=== PATIENT | female | born 1940 | race Caucasian/White ===

== ENCOUNTER 2022-02-08 11:13 | Emergency (ER) | payer MEDICARE ==
[2022-02-08] MEDS ORDERED: Albuterol 0.083% 2.5 MG/3 ML Neb Soln NEB ONE (11:32)
[2022-02-08] MEDS ORDERED: methylPREDNISolone Sodium Succinate 125 MG/2 ML SDV IVPUSH ONE (11:32)
[2022-02-08] MEDS ORDERED: Sodium Chloride 0.9% 10 ML Syringe FLUSH PRN (11:32)
[2022-02-08 12:11] LABS: BASE EXCESS VENOUS,POC 7 mmol/L (-2 - 3+); PCO2 VENOUS,POC 72 mmHg (41-51); PH VENOUS,POC 7.32 pH Units (7.32-7.43)
[2022-02-08 12:26] LABS: ESTIMATED GFR 74 mL/min (>60)
[2022-02-08] MEDS ORDERED: cefTRIAXone 2 GM Vial IVPUSH ONE (12:33)
[2022-02-08] MEDS ORDERED: Iopamidol 755 Mg/ML 100 ML Bottle IV ONE (13:57)
[2022-02-08 14:27] LABS: BASE EXCESS VENOUS,POC 7 mmol/L (-2 - 3+); PCO2 VENOUS,POC 68 mmHg (41-51); PH VENOUS,POC 7.34 pH Units (7.32-7.43)
[2022-02-08] MEDS ORDERED: Sodium Chloride 0.9% 500 ML IV ONE (15:27)
[2022-02-08] MEDS ORDERED: Sodium Chloride 0.9% 1,000 ML IV SCH (17:15)
== END 2022-02-08 18:45 ==
LOC: FB.ED 11:13
DX: J18.9 Pneumonia, unspecified organism (principal); J96.21 Acute and chronic respiratory failure with hypoxia; J96.22 Acute and chronic respiratory failure with hypercapnia; K76.89 Other specified diseases of liver; I11.0 Hypertensive heart disease with heart failure; I50.9 Heart failure, unspecified; J44.9 Chronic obstructive pulmonary disease, unspecified; Z87.891 Personal history of nicotine dependence
CPT/HCPCS: 36415; 71045; 71275; 80053; 83605; 83735; 83880; 84484; 85025; 85379; 85610; 85730; 86140; 87040; 87077; 87186; 93005; 94640; 94660; 96374; 96375; 99285; J0696; J2930; J3490; J7030; J7040; Q9967

== ENCOUNTER 2022-03-25 02:50 | Inpatient (IN) | payer MEDICARE, BC ==
[2022-03-25] MEDS ORDERED: Albuterol/Ipratropium 3.0-0.5 MG/3 ML Neb Soln NEB ONE (03:15)
[2022-03-25] MEDS ORDERED: methylPREDNISolone Sodium Succinate 500 MG/4 ML SDV IVPUSH ONE (03:16)
[2022-03-25] MEDS ORDERED: Furosemide 40 MG/4 ML VIAL IVPUSH ONE (03:19)
[2022-03-25 03:38] LABS: ESTIMATED GFR 57 mL/min (>60)
[2022-03-25] MEDS ORDERED: methylPREDNISolone Sodium Succinate 125 MG/2 ML SDV ONE (03:43)
[2022-03-25] MEDS ORDERED: methylPREDNISolone Sodium Succinate 125 MG/2 ML SDV IVPUSH ONE (03:44)
[2022-03-25] MEDS: Sodium Chloride 0.9% 10 ML Syringe FLUSH PRN ×3 (03:45→21:24)
[2022-03-25 03:49] LABS: BASE EXCESS VENOUS,POC 4 mmol/L (-2 - 3+); PCO2 VENOUS,POC 52 mmHg (41-51); PH VENOUS,POC 7.38 pH Units (7.32-7.43)
[2022-03-25 04:36] LABS: CORONAVIRUS COVID-19 NAA NEGATIVE (NEGATIVE)
[2022-03-25] MEDS ORDERED: Acetylcysteine 20% 200 MG/ML 30 ML Nebulizer Soln SDV NEB ONE (04:48)
[2022-03-25] MEDS ORDERED: Glucagon,Human Recombinant 1 MG Vial IM PRN (06:13)
[2022-03-25] MEDS ORDERED: Acetaminophen 325 MG Tab PO PRN (06:13)
[2022-03-25] MEDS ORDERED: 50% Dextrose in Water 50 ML Syringe IVPUSH PRN (06:13)
[2022-03-25] MEDS: Acetylcysteine 20% 200 MG/ML 30 ML Nebulizer Soln SDV NEB SCH ×4 (07:04→23:33)
[2022-03-25] MEDS: Albuterol/Ipratropium 3.0-0.5 MG/3 ML Neb Soln NEB SCH ×4 (07:23→23:22)
[2022-03-25] MEDS ORDERED: Non-Formulary Medication 1 Each (Insulin Aspart [Novolog] 100 UNIT/ML Pen) SQ SCH (08:00)
[2022-03-25] MEDS ORDERED: Non-Formulary Medication 1 Each (Cholecalciferol (Vitamin D3) [Vitamin D] 5,000 UNIT Table PO SCH (09:00)
[2022-03-25] MEDS ORDERED: Polyethylene Glycol 3350 Powder 17 GM Packet PO SCH (09:00)
[2022-03-25] MEDS ORDERED: Gabapentin 100 MG Cap PO SCH (09:00)
[2022-03-25] MEDS ORDERED: Oxybutynin 5 MG Tab PO SCH (09:00)
[2022-03-25] MEDS ORDERED: Non-Formulary Medication 1 Each (Magnesium Oxide [Magnesium] 400 MG Tablet) PO SCH (09:00)
[2022-03-25] MEDS ORDERED: Doxycycline 100 MG Tab PO SCH (09:00)
[2022-03-25] MEDS ORDERED: Pantoprazole 40 MG Tab.CR PO SCH (09:00)
[2022-03-25] MEDS ORDERED: Losartan 50 MG Tab PO SCH (09:00)
[2022-03-25] MEDS ORDERED: Insulin Glargine,Human Rec. Analog 100 Units/ML 3 ML Pen SUBCUT ONE (10:22)
[2022-03-25] MEDS: Insulin Glargine,Human Rec. Analog 100 Units/ML 3 ML Pen SUBCUT SCH ×2 (10:24→20:39)
[2022-03-25] MEDS: Pantoprazole 40 MG Vial IVPUSH SCH (10:26)
[2022-03-25] MEDS: Doxycycline 100 MG in Sodium Chloride 0.9% 100 ML IV SCH ×2 (10:27→21:21)
[2022-03-25] MEDS ORDERED: Insulin Lispro 100 Unit/ML 3 ML KwikPen SUBCUT ONE (10:39)
[2022-03-25] MEDS ORDERED: Morphine 2 MG/ML SYRINGE IVPUSH PRN (10:40)
[2022-03-25] MEDS: Insulin Lispro 100 Unit/ML 3 ML KwikPen SUBCUT SCH ×4 (10:40→21:22)
[2022-03-25] MEDS: Enoxaparin 40 MG/0.4 ML Syringe SUBCUT SCH (10:43)
[2022-03-25] MEDS ORDERED: Acetaminophen 650 MG Supp RECTAL PRN (11:27)
[2022-03-25] MEDS ORDERED: Furosemide 40 MG/4 ML VIAL IVPUSH SCH (11:30)
[2022-03-25] MEDS ORDERED: methylPREDNISolone Sodium Succinate 125 MG/2 ML SDV IVPUSH SCH (12:00)
[2022-03-25] MEDS ORDERED: Ondansetron 4 MG Tab.DIS PO PRN (14:12)
[2022-03-25] MEDS ORDERED: oxyCODONE 5 MG Tab PO PRN (14:12)
[2022-03-25] MEDS: Carvedilol 3.125 MG Tab PO SCH (20:38)
[2022-03-25] MEDS ORDERED: atorvaSTATin 20 MG Tab PO SCH (21:00)
[2022-03-26] MEDS: Albuterol/Ipratropium 3.0-0.5 MG/3 ML Neb Soln NEB SCH ×3 (05:38→18:04)
[2022-03-26] MEDS: Acetylcysteine 20% 200 MG/ML 30 ML Nebulizer Soln SDV NEB SCH ×3 (06:09→18:29)
[2022-03-26 06:31] LABS: ESTIMATED GFR 57 mL/min (>60)
[2022-03-26] MEDS: Insulin Lispro 100 Unit/ML 3 ML KwikPen SUBCUT SCH ×4 (08:49→21:31)
[2022-03-26] MEDS: Insulin Glargine,Human Rec. Analog 100 Units/ML 3 ML Pen SUBCUT SCH ×2 (08:51→21:29)
[2022-03-26] MEDS: Carvedilol 3.125 MG Tab PO SCH ×2 (08:55→21:20)
[2022-03-26] MEDS: Furosemide 40 MG/4 ML VIAL IVPUSH SCH (08:56)
[2022-03-26] MEDS: Enoxaparin 40 MG/0.4 ML Syringe SUBCUT SCH (08:56)
[2022-03-26] MEDS: methylPREDNISolone Sodium Succinate 125 MG/2 ML SDV IVPUSH SCH ×2 (08:57→21:37)
[2022-03-26] MEDS: Pantoprazole 40 MG Vial IVPUSH SCH (08:59)
[2022-03-26] MEDS ORDERED: Furosemide 40 MG Tab PO SCH (09:00)
[2022-03-26] MEDS ORDERED: Insulin Lispro 100 Unit/ML 3 ML KwikPen SUBCUT SCH (09:00)
[2022-03-26] MEDS: Doxycycline 100 MG in Sodium Chloride 0.9% 100 ML IV SCH (09:48)
[2022-03-26] MEDS: Doxycycline 100 MG Tab PO SCH ×2 (10:56→21:38)
[2022-03-26] MEDS: Nystatin Topical Powder 15 GM Bottle TOP SCH ×2 (13:49→21:35)
[2022-03-26] MEDS: Sodium Chloride 0.9% 10 ML Syringe FLUSH PRN (21:23)
[2022-03-27] MEDS: Albuterol/Ipratropium 3.0-0.5 MG/3 ML Neb Soln NEB SCH ×4 (00:24→17:48)
[2022-03-27] MEDS: Acetylcysteine 20% 200 MG/ML 30 ML Nebulizer Soln SDV NEB SCH ×4 (00:39→18:45)
[2022-03-27] MEDS: Insulin Lispro 100 Unit/ML 3 ML KwikPen SUBCUT SCH ×4 (08:37→21:14)
[2022-03-27 08:42] LABS: ESTIMATED GFR 74 mL/min (>60)
[2022-03-27] MEDS: Carvedilol 3.125 MG Tab PO SCH ×2 (08:56→21:16)
[2022-03-27] MEDS: Furosemide 40 MG/4 ML VIAL IVPUSH SCH (08:56)
[2022-03-27] MEDS: Enoxaparin 40 MG/0.4 ML Syringe SUBCUT SCH (08:57)
[2022-03-27] MEDS: Nystatin Topical Powder 15 GM Bottle TOP SCH ×2 (08:57→21:17)
[2022-03-27] MEDS: cefTRIAXone 1 GM Vial IVPUSH SCH (08:59)
[2022-03-27] MEDS: methylPREDNISolone Sodium Succinate 125 MG/2 ML SDV IVPUSH SCH (09:00)
[2022-03-27] MEDS: Pantoprazole 40 MG Vial IVPUSH SCH (09:01)
[2022-03-27] MEDS: Insulin Glargine,Human Rec. Analog 100 Units/ML 3 ML Pen SUBCUT SCH ×2 (09:40→21:07)
[2022-03-27] MEDS ORDERED: Insulin Glargine,Human Rec. Analog 100 Units/ML 3 ML Pen SUBCUT ONE (21:09)
[2022-03-28] MEDS: Albuterol/Ipratropium 3.0-0.5 MG/3 ML Neb Soln NEB SCH ×4 (00:06→17:22)
[2022-03-28] MEDS: Acetylcysteine 20% 200 MG/ML 30 ML Nebulizer Soln SDV NEB SCH ×4 (00:20→17:41)
[2022-03-28 06:56] LABS: ESTIMATED GFR 74 mL/min (>60)
[2022-03-28] MEDS: Insulin Lispro 100 Unit/ML 3 ML KwikPen SUBCUT SCH ×4 (08:30→21:54)
[2022-03-28] MEDS: Furosemide 40 MG/4 ML VIAL IVPUSH SCH (08:33)
[2022-03-28] MEDS: Enoxaparin 40 MG/0.4 ML Syringe SUBCUT SCH (08:33)
[2022-03-28] MEDS: Carvedilol 3.125 MG Tab PO SCH ×2 (08:33→20:51)
[2022-03-28] MEDS: cefTRIAXone 1 GM Vial IVPUSH SCH (08:34)
[2022-03-28] MEDS: Nystatin Topical Powder 15 GM Bottle TOP SCH ×2 (08:34→20:51)
[2022-03-28] MEDS: methylPREDNISolone Sodium Succinate 125 MG/2 ML SDV IVPUSH SCH (08:35)
[2022-03-28] MEDS: Sodium Chloride 0.9% 10 ML Syringe FLUSH PRN ×6 (08:38→09:53)
[2022-03-28] MEDS: Insulin Glargine,Human Rec. Analog 100 Units/ML 3 ML Pen SUBCUT SCH ×2 (09:41→21:52)
[2022-03-28] MEDS: Pantoprazole 40 MG Vial IVPUSH SCH (09:42)
[2022-03-28] MEDS: guaiFENesin/Dextromethorphan 100-10 MG/5 ML Soln 5 ML Cup PO PRN ×3 (09:45→21:09)
[2022-03-28] MEDS: Doxycycline 100 MG Tab PO SCH ×2 (15:58→21:56)
[2022-03-28] MEDS: Polyethylene Glycol 3350 Powder 17 GM Packet PO SCH (15:58)
[2022-03-28] MEDS ORDERED: Carboxymethylcellulose Sodium 0.5% Ophth Soln 15 ML Bottle EYEBOTH PRN (19:39)
[2022-03-28] MEDS: Acetaminophen 325 MG Tab PO PRN (21:09)
[2022-03-29] MEDS: Albuterol/Ipratropium 3.0-0.5 MG/3 ML Neb Soln NEB SCH ×4 (00:16→17:02)
[2022-03-29] MEDS: Acetylcysteine 20% 200 MG/ML 30 ML Nebulizer Soln SDV NEB SCH ×4 (00:23→17:19)
[2022-03-29 06:32] LABS: ESTIMATED GFR 65 mL/min (>60)
[2022-03-29] MEDS: Insulin Lispro 100 Unit/ML 3 ML KwikPen SUBCUT SCH ×4 (08:30→21:32)
[2022-03-29] MEDS: Carvedilol 3.125 MG Tab PO SCH ×2 (08:33→21:28)
[2022-03-29] MEDS: Insulin Glargine,Human Rec. Analog 100 Units/ML 3 ML Pen SUBCUT SCH ×2 (08:34→21:35)
[2022-03-29] MEDS: Polyethylene Glycol 3350 Powder 17 GM Packet PO SCH (08:40)
[2022-03-29] MEDS: Sodium Chloride 0.9% 10 ML Syringe FLUSH PRN ×2 (08:48→09:06)
[2022-03-29] MEDS: Furosemide 40 MG/4 ML VIAL IVPUSH SCH (08:49)
[2022-03-29] MEDS: cefTRIAXone 1 GM Vial IVPUSH SCH (08:49)
[2022-03-29] MEDS: methylPREDNISolone Sodium Succinate 125 MG/2 ML SDV IVPUSH SCH (08:50)
[2022-03-29] MEDS: Pantoprazole 40 MG Vial IVPUSH SCH (09:01)
[2022-03-29] MEDS: Enoxaparin 40 MG/0.4 ML Syringe SUBCUT SCH (09:16)
[2022-03-29] MEDS: Nystatin Topical Powder 15 GM Bottle TOP SCH ×2 (09:17→21:30)
[2022-03-29] MEDS: guaiFENesin/Dextromethorphan 100-10 MG/5 ML Soln 5 ML Cup PO PRN ×3 (09:18→21:48)
[2022-03-29] MEDS: Doxycycline 100 MG Tab PO SCH ×2 (09:18→21:30)
[2022-03-29] MEDS: Acetaminophen 325 MG Tab PO PRN ×2 (17:00→21:47)
[2022-03-29] MEDS: Melatonin 3 MG Tab PO SCH (21:29)
[2022-03-29] MEDS ORDERED: Insulin Glargine,Human Rec. Analog 100 Units/ML 3 ML Pen SUBCUT ONE (21:34)
[2022-03-30] MEDS: Albuterol/Ipratropium 3.0-0.5 MG/3 ML Neb Soln NEB SCH ×4 (00:45→17:13)
[2022-03-30] MEDS: Acetylcysteine 20% 200 MG/ML 30 ML Nebulizer Soln SDV NEB SCH ×4 (00:56→17:30)
[2022-03-30 06:37] LABS: ESTIMATED GFR 65 mL/min (>60)
[2022-03-30] MEDS: Insulin Lispro 100 Unit/ML 3 ML KwikPen SUBCUT SCH ×4 (07:55→22:01)
[2022-03-30] MEDS: Polyethylene Glycol 3350 Powder 17 GM Packet PO SCH (08:48)
[2022-03-30] MEDS: Doxycycline 100 MG Tab PO SCH ×2 (08:48→21:59)
[2022-03-30] MEDS: Carvedilol 3.125 MG Tab PO SCH ×2 (08:48→21:56)
[2022-03-30] MEDS: Acetaminophen 325 MG Tab PO PRN ×3 (08:49→21:58)
[2022-03-30] MEDS: Sodium Chloride 0.9% 10 ML Syringe FLUSH PRN ×5 (08:53→09:50)
[2022-03-30] MEDS: Furosemide 40 MG/4 ML VIAL IVPUSH SCH (08:54)
[2022-03-30] MEDS: cefTRIAXone 1 GM Vial IVPUSH SCH (08:55)
[2022-03-30] MEDS: Nystatin Topical Powder 15 GM Bottle TOP SCH ×2 (09:38→21:58)
[2022-03-30] MEDS: Enoxaparin 40 MG/0.4 ML Syringe SUBCUT SCH (09:39)
[2022-03-30] MEDS: Pantoprazole 40 MG Vial IVPUSH SCH (09:39)
[2022-03-30] MEDS: Insulin Glargine,Human Rec. Analog 100 Units/ML 3 ML Pen SUBCUT SCH ×2 (09:40→22:01)
[2022-03-30] MEDS: Melatonin 3 MG Tab PO SCH (21:57)
[2022-03-30] MEDS: guaiFENesin/Dextromethorphan 100-10 MG/5 ML Soln 5 ML Cup PO PRN (21:57)
[2022-03-31] MEDS: Albuterol/Ipratropium 3.0-0.5 MG/3 ML Neb Soln NEB SCH ×4 (00:42→17:09)
[2022-03-31] MEDS: Acetylcysteine 20% 200 MG/ML 30 ML Nebulizer Soln SDV NEB SCH ×4 (00:44→17:24)
[2022-03-31] MEDS: Insulin Lispro 100 Unit/ML 3 ML KwikPen SUBCUT SCH ×4 (08:50→21:21)
[2022-03-31] MEDS: Doxycycline 100 MG Tab PO SCH ×2 (08:55→21:19)
[2022-03-31] MEDS: Polyethylene Glycol 3350 Powder 17 GM Packet PO SCH (08:55)
[2022-03-31] MEDS: Carvedilol 3.125 MG Tab PO SCH ×2 (08:55→21:17)
[2022-03-31] MEDS: Nystatin Topical Powder 15 GM Bottle TOP SCH ×2 (08:56→21:18)
[2022-03-31] MEDS: Sodium Chloride 0.9% 10 ML Syringe FLUSH PRN ×3 (08:57→09:10)
[2022-03-31] MEDS: Furosemide 40 MG/4 ML VIAL IVPUSH SCH (08:58)
[2022-03-31] MEDS: cefTRIAXone 1 GM Vial IVPUSH SCH (09:00)
[2022-03-31] MEDS: Enoxaparin 40 MG/0.4 ML Syringe SUBCUT SCH (09:12)
[2022-03-31] MEDS: guaiFENesin/Dextromethorphan 100-10 MG/5 ML Soln 5 ML Cup PO PRN ×3 (09:20→21:56)
[2022-03-31] MEDS: Gabapentin 100 MG Cap PO SCH ×2 (09:20→21:39)
[2022-03-31] MEDS: Acetaminophen 325 MG Tab PO PRN ×2 (09:21→21:49)
[2022-03-31] MEDS: Insulin Glargine,Human Rec. Analog 100 Units/ML 3 ML Pen SUBCUT SCH ×2 (09:24→21:22)
[2022-03-31] MEDS: Amoxicillin/Clavulanate K 875-125 MG Tab PO SCH ×2 (10:55→21:17)
[2022-03-31] MEDS: Melatonin 3 MG Tab PO SCH (21:20)
[2022-03-31] MEDS ORDERED: Insulin Glargine,Human Rec. Analog 100 Units/ML 3 ML Pen SUBCUT ONE (21:26)
[2022-04-01] MEDS: Acetylcysteine 20% 200 MG/ML 30 ML Nebulizer Soln SDV NEB SCH ×2 (00:35→05:41)
[2022-04-01] MEDS: Albuterol/Ipratropium 3.0-0.5 MG/3 ML Neb Soln NEB SCH ×2 (00:35→05:41)
[2022-04-01] MEDS ORDERED: Pantoprazole 40 MG Tab.CR PO SCH (06:00)
[2022-04-01] MEDS: Insulin Lispro 100 Unit/ML 3 ML KwikPen SUBCUT SCH (08:25)
[2022-04-01] MEDS: Polyethylene Glycol 3350 Powder 17 GM Packet PO SCH (08:29)
[2022-04-01] MEDS: Enoxaparin 40 MG/0.4 ML Syringe SUBCUT SCH (08:30)
[2022-04-01] MEDS: Carvedilol 3.125 MG Tab PO SCH (08:31)
[2022-04-01] MEDS: Doxycycline 100 MG Tab PO SCH (08:31)
[2022-04-01] MEDS: Nystatin Topical Powder 15 GM Bottle TOP SCH (08:32)
[2022-04-01] MEDS: Gabapentin 100 MG Cap PO SCH (08:41)
[2022-04-01] MEDS: Insulin Glargine,Human Rec. Analog 100 Units/ML 3 ML Pen SUBCUT SCH (08:42)
[2022-04-01] MEDS: Amoxicillin/Clavulanate K 875-125 MG Tab PO SCH (08:42)
[2022-04-01] MEDS ORDERED: Furosemide 40 MG Tab PO SCH (09:00)
[2022-04-01] MEDS: guaiFENesin/Dextromethorphan 100-10 MG/5 ML Soln 5 ML Cup PO PRN (09:46)
== END 2022-04-01 10:45 | DRG 177 ==
LOC: FB.ED 02:50 → UNDOADMOB 05:27 → FB.MS 05:27 → OBSVTOIN 08:34
PROVIDERS: ADMIT Emergency Medicine; ATTEND Family Medicine
DX: J15.6 Pneumonia due to other Gram-negative bacteria (principal); J96.21 Acute and chronic respiratory failure with hypoxia; J96.22 Acute and chronic respiratory failure with hypercapnia; J44.0 Chronic obstructive pulmonary disease with (acute) lower respiratory infection; J44.1 Chronic obstructive pulmonary disease with (acute) exacerbation; I50.32 Chronic diastolic (congestive) heart failure; Z68.43 Body mass index [BMI] 50.0-59.9, adult; Z51.5 Encounter for palliative care; Z78.9 Other specified health status; K76.0 Fatty (change of) liver, not elsewhere classified; L89.159 Pressure ulcer of sacral region, unspecified stage; E11.9 Type 2 diabetes mellitus without complications; Z66 Do not resuscitate; Z20.822 Contact with and (suspected) exposure to COVID-19; B37.2 Candidiasis of skin and nail; E78.5 Hyperlipidemia, unspecified; K42.9 Umbilical hernia without obstruction or gangrene; M25.511 Pain in right shoulder; I11.0 Hypertensive heart disease with heart failure; K59.00 Constipation, unspecified; R16.0 Hepatomegaly, not elsewhere classified; G47.33 Obstructive sleep apnea (adult) (pediatric); E66.01 Morbid (severe) obesity due to excess calories; K21.9 Gastro-esophageal reflux disease without esophagitis; I27.20 Pulmonary hypertension, unspecified; E11.628 Type 2 diabetes mellitus with other skin complications; E11.319 Type 2 diabetes mellitus with unspecified diabetic retinopathy without macular edema; Z79.4 Long term (current) use of insulin; Z79.899 Other long term (current) drug therapy
CPT/HCPCS: 0241U; 36415; 71045; 71250; 80048; 80053; 82947; 83605; 83880; 84484; 85025; 85379; 85610; 85730; 87070; 87077; 87205; 94640; 94760; 96374; 96375; 99223; 99232; 99233; 99238; 99285-25; A9270-GY; C9113; J0696; J1650; J1815; J1815-GY; J1940; J2930; J3490; J7620; U0002

== ENCOUNTER 2022-12-10 10:54 | Emergency (ER) | payer MEDICARE, BC ==
[2022-12-10] MEDS ORDERED: Albuterol/Ipratropium 3.0-0.5 MG/3 ML Neb Soln NEB ONE (11:04)
[2022-12-10] MEDS ORDERED: methylPREDNISolone Sodium Succinate 125 MG/2 ML SDV IVPUSH ONE (11:04)
[2022-12-10] MEDS: Sodium Chloride 0.9% 10 ML Syringe FLUSH PRN ×2 (11:10→13:07)
[2022-12-10 11:25] LABS: BASOPHILS ABSOLUTE AUTO 0.1 x10-3/uL (0.0-0.1); BASOPHILS PERCENT AUTO 0.7 % (0.2-1.5); EOSINOPHILS ABSOLUTE AUTO 0.1 x10-3/uL (0.0-0.8); HEMATOCRIT 39.5 % (34.2-48.2); HEMOGLOBIN 12.3 g/dL (11.4-15.5); LYMPHOCYTES ABSOLUTE AUTO 0.9 x10-3/uL (1.0-4.4); LYMPHOCYTES PERCENT AUTO 9.1 % (18.4-52.1); MEAN CORPUSCULAR HEMOGLOBIN 27.6 pg (23.9-33.9); MEAN CORPUSCULAR HGB CONC 31.1 g/dL (31.9-34.8); MEAN CORPUSCULAR VOLUME 88.6 fL (76.7-100.5); MEAN PLATELET VOLUME 8.7 fL (7.1-12.4); MONOCYTES ABSOLUTE AUTO 0.8 x10-3/uL (0.3-1.0); MONOCYTES PERCENT AUTO 7.3 % (4.4-15.7); NEUTROPHILS ABSOLUTE AUTO 8.6 x10-3/uL (1.5-6.3); NEUTROPHILS PERCENT AUTO 81.9 % (30.8-76.2); PLATELET COUNT,PLT 204 x10(3)uL (151-488); RED BLOOD CELL COUNT 4.46 x10(6)uL (3.60-5.20); RED CELL DISTRIBUTION WIDTH 18.6 % (12.3-16.5); WHITE BLOOD CELL COUNT,WBC 10.4 x10-3/uL (3.0-10.3)
[2022-12-10 11:38] LABS: A/G RATIO 0.8; ALANINE AMINOTRANSFERASE,ALT 62 U/L (12-36); ALBUMIN 2.9 g/dL (3.2-4.6); ALKALINE PHOSPHATASE 100 IU/L (56-112); ASPARTATE AMNIOTRANSFERASE,AST 40 IU/L (5-25); BILIRUBIN TOTAL 0.5 mg/dL (0.1-1.3); BLOOD UREA NITROGEN,BUN 34 mg/dL (7-18); CALCIUM 8.7 mg/dL (8.6-10.2); CHLORIDE,CL 103 mmol/L (100-110); ESTIMATED GFR 57 mL/min (>60); GLUCOSE RANDOM 107 mg/dL (80-116); POTASSIUM,K 5.4 mmol/L (3.5-5.3); PROTEIN TOTAL,TP 6.6 g/dL (6.0-8.0); SODIUM,NA 142 mmol/L (135-145)
[2022-12-10 11:39] LABS: CARBON DIOXIDE,CO2 40 mmol/L (21-32)
[2022-12-10 11:41] LABS: BILIRUBIN,URINE SMALL (NEGATIVE); GLUCOSE,URINE NORMAL (NORMAL); KETONES,URINE NEGATIVE (NEGATIVE); LEUKOCYTE ESTERASE,URINE MODERATE (NEGATIVE); NITRITE,URINE POSITIVE (NEGATIVE); OCCULT BLOOD,URINE MODERATE (NEGATIVE); PROTEIN,URINE TRACE mg/dL (NEGATIVE); UROBILINOGEN,URINE NORMAL (NEGATIVE)
[2022-12-10 11:44] LABS: LACTIC ACID 0.8 mmol/L (0.4-2.0); TROPONIN I 15.3 pg/mL (4.0-60.3)
[2022-12-10 11:53] LABS: APPEARANCE,URINE SLIGHTLY CLOUDY (CLEAR); BACTERIA,URINE FEW (NS); COLOR,URINE YELLOW (YELLOW); SQUAMOUS EPITHELIAL CELLS,UR FEW (NS,R,O); WBC,URINE 20-30 (0-5)
[2022-12-10 11:54] LABS: COARSE GRANULAR CASTS,URINE FEW (NS)
[2022-12-10] MEDS ORDERED: Pantoprazole 40 MG Vial IVPUSH ONE (12:19)
[2022-12-10] MEDS ORDERED: cefTRIAXone 2 GM Vial IVPUSH ONE (12:26)
[2022-12-10] MEDS ORDERED: Sodium Chloride 0.9% 1,000 ML IV SCH (12:45)
== END 2022-12-10 15:41 | disposition expired ==
LOC: FB.ED 10:54
DX: J96.21 Acute and chronic respiratory failure with hypoxia (principal); J96.22 Acute and chronic respiratory failure with hypercapnia; I50.32 Chronic diastolic (congestive) heart failure; R00.1 Bradycardia, unspecified; K21.9 Gastro-esophageal reflux disease without esophagitis; E11.9 Type 2 diabetes mellitus without complications; E66.9 Obesity, unspecified; Z79.899 Other long term (current) drug therapy; Z79.4 Long term (current) use of insulin
CPT/HCPCS: 36415; 51701; 71045; 80053; 81001; 83605; 83880; 84484; 85025; 87040; 87086; 87088; 93005; 93010; 96361; 96374; 96375; 99285; 99285-25; J0696; J2930; J3490; J7030; J7620